=== PATIENT | female | born 1960 | race African-American/Black ===

== ENCOUNTER 2021-10-13 06:47 | Inpatient (IN) | payer OTHER ==
[~2021-10-13] VITALS: Ht 162.6 cm; Wt 113.0 kg
[~2021-10-13 06:47] MED LIST: ASPI-630 PO; HYDR-2868 PO; INSU100I13 SQ; INSU100I17 SQ; LABE100T5 PO; LOSA-73 PO; SIMV20TA18 PO; TRIA1CAP3 PO
[2021-10-13] MEDS ORDERED: ASPIRIN CHEWABLE 81 MG TABLET. PO ONE (07:15)
[2021-10-13] MEDS ORDERED: NITROGLYCERIN SUBLINGUAL 0.4 MG BOTTLE OF 25. SL PRN (07:15)
[2021-10-13] MEDS ORDERED: CONTRAST GIVEN. MC PRN (07:30)
[2021-10-13] MEDS ORDERED: IOHEXOL 350 MG/ML 100 ML VIAL. IV ONE (07:30)
--- NOTE | 2021-10-13 07:37 | PHYS DOC ---
Past Medical History Past Medical History: Diabetes-Type II, High Cholesterol, Hypertension Additional Past Medical Histor: hx pulmonary embolism Past Surgical History: Smoking Status: Never Smoker Alcohol Use: None Drug Use: None General Adult EDM: Chief Complaint: SHORTNESS OF BREATH HPI: HPI: Patient is a 61 year old female with history of DM, HTN, HLD, pulmonary embolism no longer on anticoagulation who presents with 3 days of progressive shortness of breath and intermittent chest pain. Chest pain is worse with exertion. Described as burning in nature. Central chest. Does not radiate. States she may have mild cough, but denies runny nose, sore throat, fever/chills. She is vaccinated against COVID. 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 She has bilateral lower extremity edema, but states that this is no different than usual. States that it is symmetric. Denies leg pain, but does state that she bumped her right leg into a desk recently. States that her pulmonary embolism was approximately around 2009, and describes that she had "the clots broken up, then they put me on a blood thinner." States she has not been on any blood thinners for several years. Review of Systems: Review of Systems: Constitutional: Denies fever or chills. [] Eyes: Denies change in visual acuity. [] HENT: Denies nasal congestion or sore throat. [] Respiratory: + Mild cough and shortness of breath. [] Cardiovascular: + chest pain and edema. [] GI: Denies abdominal pain, nausea, vomiting, bloody stools or diarrhea. [] Musculoskeletal: Denies back pain or joint pain. [] Integument: Denies rash. [] Psychiatric: Denies depression or anxiety. [] Heart Score: C/O Chest Pain: Yes HEART Score for Chest Pain: HEART Score for Chest Pain Response (Comments) Value History Moderately Suspicious 1 ECG Nonspecific Repolarizatio 1 Age >45 - < 65 1 Risk Factors >3 Risk Factors or Hx CAD 2 Troponin >3 x Normal Limit 2 Total 7 Risk Factors: Risk Factors: DM, HTN, HLP, obesity. Current Medications: Current Medications Medications (Trade) Dose Ordered Sig/Jimena Start Time Stop Time Status Last Admin Dose Admin Aspirin (Aspirin Chewable) 324 mg 1X ONCE 10/13/21 07:15 10/13/21 07:16 DC Nitroglycerin (Nitrostat) 0.4 mg PRN Q5MIN PRN 10/13/21 07:15 Allergies: Allergies: Allergies Coded Allergies Type Severity Reaction Last Updated Verified Penicillins Allergy Unknown Swelling 10/13/21 No losartan Adverse Reaction Severe Swelling 10/13/21 Yes Physical Exam: PE: Constitutional: Well developed, mild tachypnea, no distress HENT: Normocephalic, atraumatic Eyes: conjunctiva normal, no discharge. [] Neck: Normal range of motion, no tenderness, supple, no stridor. [] Cardiovascular:Heart rate regular rhythm, no murmur [] Lungs & Thorax: faint crackles bilaterally, mild tachypnea Abdomen: Bowel sounds normal, soft, no tenderness, no masses, no pulsatile masses. [] Skin: Warm, dry, no erythema, no rash. [] Extremities: mild bilateral pitting edema to the knee Neurologic: Alert and oriented X 3, normal motor function, normal sensory function, no focal deficits noted. [] Psychologic: Affect normal, judgement normal, mood normal. [] Current Patient Data: Vital Signs: Vital Signs Date Time Temp Pulse Resp B/P (MAP) Pulse Ox O2 Delivery O2 Flow Rate FiO2 10/13/21 06:47 97.6 94 18 228/112 (150 100 Room Air 97.6 EKG: EKG: Sinus rhythm. Rate 98. Normal axis. Slight ST depression inferiorly. t-wave inversion in I and aVL Radiology/Procedures: Radiology/Procedures: [] Impression: [facility] [address] [place] [address] IMAGING REPORT Signed PATIENT: NEIDA MCKEON ACCOUNT: [id number] : 1960 LOCATION: ER AGE: 61 SEX: F EXAM STATUS: REG ER ORD. PHYSICIAN: KIRAN FLORES MD REASON: dyspnea, cp, hx of PE now off anticoagulant PROCEDURE: CT ANGIOGRAPHY CHEST Examination: CT angiographic chest with IV contrast HISTORY: History of dyspnea, chest pain COMPARISON: None available TECHNIQUE: Axial CT angiographic images of chest were performed with IV contrast. Coronal and sagittal 3-D MIP reformats are performed. Exposure: One or more of the following individualized dose reduction techniques were utilized for this examination: 1. Automated exposure control 2. Adjustment of the mA and/or kV according to patient size 3. Use of iterative reconstruction technique FINDINGS: The visualized thyroid gland grossly appears unremarkable. Mild coronary artery calcifications. Central airways are patent. The caliber of the aorta grossly appears unremarkable. There is no evidence of filling defect identified in the main pulmonary arterial trunk and right and left main pulmonary arteries. There is questionable filling defect identified in the left lower lobe segmental branch, best visualized on series 3 image 56. Mild bibasilar lung atelectasis or infiltrates. The liver, spleen, grossly appears unremarkable Moderate degenerative disease thoracic spine. IMPRESSION: 1. No evidence of central pulmonary embolism. There is questionable filling defect identified in the left lower lobe segmental branch, could be small pulmonary embolus. 2. Mild bibasilar lung atelectasis or infiltrates. Electronically signed by: William Min MD (10/13/2021 8:29 AM) [id number] DICTATED and SIGNED BY: WILLIAM MIN MD DATE: 10/13/21 [id number] Course & Med Decision Making: Course & Med Decision Making Pertinent Labs and Imaging studies reviewed. (See chart for details) Patient is 61-year-old female with history of DM, HTN, HLD, pulmonary embolism no longer on anticoagulation who presents with 3 days of progressive shortness of breath and intermittent chest pain. On arrival is mildly tachypneic, but not in acute distress. Heart rate 90s, hypertensive 220/102, Satting well on RA. Exam concerning for some mild volume overload. Ddx includes but is not limited to: ACS, CHF, PE, pneumonia (covid vs bacterial), metabolic acidosis (eg DKA), hypertensive pulmonary edema. EKG with mild ST depressions inferiorly and high lateral t-wave inversion. Will check troponin. ASA 324 mg ordered. Given hx PE no longer on treatment will obtain CTA chest to exclude PE and obtain trop/bnp for biomarkers/risk stratification. HTN tx w/ IV labetalol. 0737 Rapid COVID negative. HS-Troponin elevated at 499. HEART Score =7. Patient is now at CT. Heparin gtt ordered. BP now 180/88. 0822 CT shows no central PE, and raises question of small left lower lobe segmental PE, which would not be sufficient to cause this troponin elevation. Cardiology paged and recommends nitro gtt. ordered. Will plan on admission to cardiac telemetry. [id number] Nataliya Disclaimer: Nataliya Disclaimer: This electronic medical record was generated, in whole or in part, using a voice recognition dictation system. Departure Departure Impression: Primary Impression: NSTEMI (non-ST elevated myocardial infarction) Additional Impressions: Hypertension Dyspnea Chest pain Disposition: ADMITTED INPATIENT Admitting Physician: NIDIA Purvis) Condition: STABLE Referrals: ROMAIN EDWARDS MD (PCP) KIRAN FLORES MD Oct 13, 2021 07:37
[2021-10-13 07:41] LABS: BASO % 1 % (0-3); EOS # 0.2 x10^3/uL (0.0-0.7); EOS % 2 % (0-3); HEMATOCRIT 37.2 % (36.0-47.0); HEMOGLOBIN 11.5 g/dL (12.0-15.5); LYMPH # 1.1 x10^3/uL (1.0-4.8); LYMPH % 16 % (24-48); MEAN CORPUSCULAR HEMOGLOBIN 21 pg (25-35); MEAN CORPUSCULAR HGB CONC 31 g/dL (31-37); MEAN CORPUSCULAR VOLUME 69 fL (79-100); MONO # 0.4 x10^3/uL (0.0-1.1); MONO % 7 % (0-9); NEUT # 5.1 x10^3/uL (1.8-7.7); NEUT % 75 % (31-73); PLATELET COUNT 262 x10^3/uL (140-400); RED BLOOD COUNT 5.43 x10^6/uL (3.50-5.40); RED CELL DISTRIBUTION WIDTH 15.5 % (11.5-14.5); WHITE BLOOD COUNT 6.8 x10^3/uL (4.0-11.0)
[2021-10-13] MEDS ORDERED: LABETALOL 20 MG/4 ML DISP.SYRIN. IVP ONE (07:45)
[2021-10-13 07:55] LABS: CALCIUM 8.7 mg/dL (8.5-10.1); CREATININE 1.1 mg/dL (0.6-1.0); GFR 60.7; POTASSIUM 3.7 mmol/L (3.5-5.1)
[2021-10-13 08:01] LABS: ALBUMIN 3.6 g/dL (3.4-5.0); ALBUMIN/GLOBULIN RATIO 0.8 (1.0-1.7); TOTAL BILIRUBIN 0.5 mg/dL (0.2-1.0); TOTAL PROTEIN 8.1 g/dL (6.4-8.2)
[2021-10-13] MEDS ORDERED: HEPARIN for IV BOLUS 10,000 UNIT/10 ML VIAL. IV ONE (08:15)
[2021-10-13 08:18] LABS: ANISOCYTOSIS PRESENT; HYPOCHROMIA PRESENT; PLT ESTIMATE ADEQUATE (ADEQUATE); POLYCHROMASIA PRESENT
--- NOTE | 2021-10-13 08:31 | RAD ---
Examination: CT angiographic chest with IV contrast HISTORY: History of dyspnea, chest pain COMPARISON: None available TECHNIQUE: Axial CT angiographic images of chest were performed with IV contrast. Coronal and sagitta l 3-D MIP reformats are performed. Exposure: One or more of the following individualized dose reduction techniques were utilized for thi s examination: 1. Automated exposure control 2. Adjustment of the mA and/or kV according to patient size 3. Use of iterative reconstruction technique FINDINGS: The visualized thyroid gland grossly appears unremarkable. Mild coronary artery calcifications. Centr al airways are patent. The caliber of the aorta grossly appears unremarkable. There is no evidence of filling defect identified in the main pulmonary arterial trunk and right and left main pulmonary art eries. There is questionable filling defect identified in the left lower lobe segmental branch, best visualized on series 3 image 56. Mild bibasilar lung atelectasis or infiltrates. The liver, spleen, g rossly appears unremarkable Moderate degenerative disease thoracic spine. IMPRESSION: 1. No evidence of central pulmonary embolism. There is questionable filling defect identified in the left lower lobe segmental branch, could be small pulmonary embolus. 2. Mild bibasilar lung atelectasis or infiltrates. Electronically signed by: William Min MD (10/13/2021 8:29 AM) [id number]
[2021-10-13] MEDS ORDERED: NITROGLYCERIN PREMIX 250 ML IV ONE (09:00)
[2021-10-13] MEDS: HEPARIN 25,000UTS/250ML PREMIX 250 ML IV PRN (09:09)
[2021-10-13 11:00] VITALS: BP 173/85
[2021-10-13] MEDS ORDERED: HYDR-2869 PO (11:17)
[2021-10-13] MEDS ORDERED: CALC300T5 PO (12:11)
--- NOTE | 2021-10-13 12:19 | HP ---
DATE OF SERVICE: 10/13/2021 ADMIT DATE: 10/13/2021 CHIEF COMPLAINT: Shortness of breath. HISTORY OF PRESENT ILLNESS: The patient is a pleasant 61-year-old female who presented to the ER with shortness of breath. She had some associated chest discomfort. We checked her cardiac enzymes. Her troponin is up to 499. She also has blood pressure of 220 systolically. I discussed the case with the ER physician. We are admitting the patient and consulting Cardiology. We are placing the patient on a nitro drip and a heparin drip. PAST MEDICAL HISTORY: Diabetes, hypertension, history of PE, . ALLERGIES: PENICILLIN, AMLODIPINE AND LOSARTAN. FAMILY HISTORY: Diabetes and coronary artery disease. 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 Does not drink, smoke or take drugs. MEDICATIONS: Reviewed, please refer to the MRAD. REVIEW OF SYSTEMS: GENERAL: No history of weight change, weakness or fevers. SKIN: No bruising, hair changes or rashes. EYES: No blurred, double or loss of vision. NOSE AND THROAT: No history of nosebleeds, hoarseness or sore throat. HEART: No history of palpitations, chest pain or shortness of breath on exertion. LUNGS: Denies cough, hemoptysis, wheezing or shortness of breath. GASTROINTESTINAL: Denies changes in appetite, nausea, vomiting, diarrhea or constipation. GENITOURINARY: No history of frequency, urgency, hesitancy or nocturia. NEUROLOGIC: Denies history of numbness, tingling, tremor or weakness. PSYCHIATRIC: No history of panic, anxiety or depression. ENDOCRINE: No history of heat or cold intolerance, polyuria or polydipsia. EXTREMITIES: Denies muscle weakness, joint pain, pain on walking or stiffness. PHYSICAL EXAMINATION: VITALS: Within normal limits and are stable. GENERAL: No apparent distress. Alert and oriented. HEENT: Normal cephalic atraumatic, external auditory canals are patent. Eyes: Extraocular muscles are intact, pupils are equally round and reactive to light and accommodation. MUSCULOSKELETAL: Well developed, well nourished, good range of motion. ENDOCRINE: No thyromegaly was palpated. LYMPHATICS: No cervical chain or axillary nodes were noted. HEMATOPOIETIC: No bruising. NECK: Supple, no JVD, no thyromegaly was noted. LUNGS: Clear to auscultation in all lung carvalho without rhonchi or wheezing. HEART: RRR, S1, S2 present. Peripheral pulses intact, no obvious murmurs were noted. ABDOMEN: Soft, nontender. Positive bowel sounds, no organomegaly, normal bowel sounds. EXTREMITIES: Without any cyanosis, clubbing, or edema. Pedal pulses intact, Homans sign is negative. NEUROLOGIC: Normal speech, normal tone. A and O x 3, moves all extremities, no obvious focal deficits. PSYCHIATRIC: Normal affect, normal mood. Stable. SKIN: No ulcerations or rashes, good skin turgor, no jaundice. VASCULAR: Good capillary refill, neurovascular bundle appears to be intact. LABORATORY DATA: Troponin is 499. BNP 700. Hemoglobin is 11.5. PTT 30. COVID testing is negative. CT angiography showed no pulmonary emboli. ASSESSMENT AND PLAN: Possible acute myocardial infarction with hypertensive urgency. The patient has been admitted on nitroglycerin drip and a heparin drip. We have consulted Cardiology. Serial enzymes, serial EKGs, echocardiogram, cardiac monitoring. Home meds. Deep venous thrombosis prophylaxis. Full code. EDY/HUDSON DR: EDY/augusto TID: [id number]
[2021-10-13] MEDS ORDERED: GLIM1TAB7 PO (12:55)
[2021-10-13] MEDS ORDERED: IV DEXTROSE 5% 250 ML BAG. IV PRN (13:00)
[2021-10-13] MEDS: INSULIN LISPRO 300 UNITS/3 ML VIAL. SQ SCH ×2 (13:00→17:00)
[2021-10-13] MEDS: ASPIRIN CHEWABLE 81 MG TABLET. PO SCH (13:00)
[2021-10-13] MEDS ORDERED: DEXTROSE 50% 25 GM / 50ML DISP.SYRIN. IV PRN (13:00)
[2021-10-13] MEDS: CALCIUM CARBONATE 500 MG TAB.CHEW PO SCH (13:15)
[2021-10-13] MEDS: GLIMEPIRIDE 2 MG TABLET. PO SCH (13:15)
[2021-10-13] MEDS: LABETALOL HCL 100 MG TABLET. PO SCH ×2 (13:15→21:04)
--- NOTE | 2021-10-13 13:43 | EKG ---
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
[2021-10-13 15:00] VITALS: BP 150/76
[2021-10-13] MEDS: HEPARIN for IV BOLUS 10,000 UNIT/10 ML VIAL. IV PRN (15:07)
--- NOTE | 2021-10-13 17:35 | PDOC2 ---
CONSULT Date of Consult Date of Consult DATE: 10/13/21 TIME: 17:28 Reason for Consult Reason for Consult: Chest pain and accelerated hypertension Referring Physician Referring Physician: Dr. Segovia Identification/Chief Complaint Chief Complaint Increasing shortness of breath Source Source: Chart review, Patient History of Present Illness Reason for Visit: The patient is a 61-year-old female who presented to the emergency room with 3 days of increasing shortness of breath and episodes of chest pressure. Her initial EKG showed a sinus rhythm with no acute ST elevation but mild nonspecific ST-T wave changes. Initial document blood pressure was 228/112. A CTA of the chest showed no central pulmonary emboli but a questionable filling defect in the left lower segmental branches that was read as possible small pleural emboli. The patient's troponin levels have been elevated at 499 and 464. This morning she is feeling significantly better after treatment. Her chest pain has resolved. She does have a history of previous pulmonary embolism. She has no documented history of coronary disease or heart failure. Past Medical History Cardiovascular: HTN, Hyperlipidemia Pulmonary: Pulmonary embolus Endocrine: Diabetes Past Surgical History Past Surgical History: Family History Family History: Hypertension Social History No ALCOHOL: none Current Problem List Problem List Problems Medical Problems: (1) Chest pain Status: Acute (2) Dyspnea Status: Acute (3) Hypertension Status: Acute (4) NSTEMI (non-ST elevated myocardial infarction) Status: Acute Current Medications Current Medications Current Medications Nitroglycerin (Nitrostat) 0.4 mg PRN Q5MIN PRN SL CHEST PAIN; Start 10/13/21 at 07:15 Aspirin (Aspirin Chewable) 324 mg 1X ONCE PO Last administered on 10/13/21at 07:49; Start 10/13/21 at 07:15; Stop 10/13/21 at 07:16; Status DC Iohexol (Omnipaque 350 Mg/ml) 100 ml 1X ONCE IV Last administered on 10/13/21at 08:15; Start 10/13/21 at 07:30; Stop 10/13/21 at 07:31; Status DC Info (CONTRAST GIVEN -- Rx MONITORING) 1 each PRN DAILY PRN MC SEE COMMENTS; Start 10/13/21 at 07:30; Stop 10/15/21 at 07:29 Labetalol HCl (Normodyne Iv Push) 20 mg 1X ONCE IVP Last administered on 10/13/21at 07:51; Start 10/13/21 at 07:45; Stop 10/13/21 at 07:46; Status DC Heparin Sodium (Porcine) (Heparin Sodium) 4,000 unit 1X ONCE IV Last administered on 10/13/21at 09:05; Start 10/13/21 at 08:15; Stop 10/13/21 at 08:34; Status DC Heparin Sodium/ Dextrose 250 ml @ 13.308 mls/ hr CONT PRN IV PER PROTOCOL Last administered on 10/13/21at 09:09; Start 10/13/21 at 08:30 Heparin Sodium (Porcine) (Heparin Sodium) 2,900 unit PRN Q6HRS PRN IV FOR UFH LEVEL LESS THAN 0.2 Last administered on 10/13/21at 15:07; Start 10/13/21 at 08:30 Nitroglycerin/ Dextrose 250 ml @ 6 mls/hr 1X ONCE IV Last administered on 10/13/21at 09:14; Start 10/13/21 at 09:00; Stop 10/15/21 at 02:39 Aspirin (Aspirin Chewable) 162 mg DAILY PO ; Start 10/13/21 at 13:00 Hydralazine HCl (Apresoline) 50 mg TID PO Last administered on 10/13/21at 13:15; Start 10/13/21 at 14:00 Labetalol HCl (Trandate) 100 mg BID PO Last administered on 10/13/21at 13:15; Start 10/13/21 at 13:00 Simvastatin (Zocor) 20 mg QHS PO ; Start 10/14/21 at 21:00 Calcium Carbonate/ Glycine (Tums) 500 mg DAILY PO Last administered on 10/13/21at 13:15; Start 10/13/21 at 13:00 Insulin Human Lispro (HumaLOG) 0-7 UNITS TIDWMEALS SQ ; Start 10/13/21 at 13:00 Dextrose (Dextrose 50%-Water Syringe) 12.5 gm PRN Q15MIN PRN IV SEE COMMENTS; Start 10/13/21 at 13:00 Dextrose (Iv Dextrose 5%) 250 ml PRN Q15MIN PRN IV SEE COMMENTS; Start 10/13/21 at 13:00; Stop 10/13/21 at 12:57; Status DC Glimepiride (Amaryl) 1 mg DAILY PO Last administered on 10/13/21at 13:15; Start 10/13/21 at 13:00 Active Scripts Active Reported Glimepiride 1 Mg Tablet 1 Tab PO DAILY Tums (Calcium Carbonate) 300 Mg Tab.chew 300 Mg PO DAILY Hydralazine Hcl 50 Mg Tablet 1 Tab PO TID Novolog Flexpen (Insulin Aspart) 100 Unit/1 Ml Insuln.pen 100 Unit SQ TIDAC PRN Simvastatin 20 Mg Tablet 20 Mg PO DAILY Aspirin 81 Mg Tab.chew 2 Tab PO DAILY Labetalol Hcl 100 Mg Tablet 1 Tab PO BID Lantus Solostar (Insulin Glargine,Hum.rec.anlog) 100 Unit/1 Ml Insuln.pen 40 Unit SQ QHS Allergies Allergies: Coded Allergies: amlodipine (Verified Allergy, Severe, Anaphylaxis, 10/13/21) Penicillins (Unverified Allergy, Unknown, Swelling, 10/13/21) losartan (Verified Adverse Reaction, Severe, Swelling, 10/13/21) ROS Respiratory: YES: Shortness of breath, SOB with excertion Cardiovascular: yes Chest Pain Physical Exam General: No acute distress HEENT: Atraumatic Lungs: Other (Slightly decreased breath sounds) Heart: Regular rate Abdomen: Normal bowel sounds Vitals VITALS Vital Signs Date Time Temp Pulse Resp B/P (MAP) Pulse Ox O2 Delivery O2 Flow Rate FiO2 10/13/21 15:00 97.1 93 20 150/76 (100) 99 97.1 10/13/21 11:15 Room Air Labs Labs Laboratory Tests Test 10/13/21 07:28 10/13/21 07:38 10/13/21 09:36 10/13/21 10:35 White Blood Count 6.8 x10^3/uL (4.0-11.0) Red Blood Count 5.43 x10^6/uL (3.50-5.40) Hemoglobin 11.5 g/dL (12.0-15.5) Hematocrit 37.2 % (36.0-47.0) Mean Corpuscular Volume 69 fL (79-100) Mean Corpuscular Hemoglobin 21 pg (25-35) Mean Corpuscular Hemoglobin Concent 31 g/dL (31-37) Red Cell Distribution Width 15.5 % (11.5-14.5) Platelet Count 262 x10^3/uL (140-400) Neutrophils (%) (Auto) 75 % (31-73) Lymphocytes (%) (Auto) 16 % (24-48) Monocytes (%) (Auto) 7 % (0-9) Eosinophils (%) (Auto) 2 % (0-3) Basophils (%) (Auto) 1 % (0-3) Neutrophils # (Auto) 5.1 x10^3/uL (1.8-7.7) Lymphocytes # (Auto) 1.1 x10^3/uL (1.0-4.8) Monocytes # (Auto) 0.4 x10^3/uL (0.0-1.1) Eosinophils # (Auto) 0.2 x10^3/uL (0.0-0.7) Basophils # (Auto) 0.0 x10^3/uL (0.0-0.2) Platelet Estimate Adequate (ADEQUATE) Large Platelets Present Polychromasia Present Hypochromasia Present Anisocytosis Present Activated Partial Thromboplast Time 30 SEC (24-38) Sodium Level 141 mmol/L (136-145) Potassium Level 3.7 mmol/L (3.5-5.1) Chloride Level 104 mmol/L (98-107) Carbon Dioxide Level 28 mmol/L (21-32) Anion Gap 9 (6-14) Blood Urea Nitrogen 19 mg/dL (7-20) Creatinine 1.1 mg/dL (0.6-1.0) Estimated GFR (Cockcroft-Gault) 60.7 BUN/Creatinine Ratio 17 (6-20) Glucose Level 164 mg/dL (70-99) Calcium Level 8.7 mg/dL (8.5-10.1) Total Bilirubin 0.5 mg/dL (0.2-1.0) Aspartate Amino Transf (AST/SGOT) 15 U/L (15-37) Alanine Aminotransferase (ALT/SGPT) 21 U/L (14-59) Alkaline Phosphatase 97 U/L (46-116) Troponin I High Sensitivity 499 ng/L (4-50) OA-Ydh-H-Type Natriuretic Peptide 700 pg/mL (0-124) Total Protein 8.1 g/dL (6.4-8.2) Albumin 3.6 g/dL (3.4-5.0) Albumin/Globulin Ratio 0.8 (1.0-1.7) SARS-CoV-2 RNA (KEVIN) Negative (Negative) SARS-CoV-2 Antigen (Rapid) Negative (NEGATIVE) Glucose (Fingerstick) 142 mg/dL (70-99) 120 mg/dL (70-99) Test 10/13/21 10:50 10/13/21 13:27 10/13/21 14:33 10/13/21 16:27 Troponin I High Sensitivity 464 ng/L (4-50) 459 ng/L (4-50) Heparin Anti-Xa Act, Unfractionated < 0.10 IU/mL (0.30-0.70) Glucose (Fingerstick) 145 mg/dL (70-99) Laboratory Tests Test 10/13/21 07:28 10/13/21 07:38 10/13/21 09:36 10/13/21 10:35 White Blood Count 6.8 x10^3/uL (4.0-11.0) Red Blood Count 5.43 x10^6/uL (3.50-5.40) Hemoglobin 11.5 g/dL (12.0-15.5) Hematocrit 37.2 % (36.0-47.0) Mean Corpuscular Volume 69 fL (79-100) Mean Corpuscular Hemoglobin 21 pg (25-35) Mean Corpuscular Hemoglobin Concent 31 g/dL (31-37) Red Cell Distribution Width 15.5 % (11.5-14.5) Platelet Count 262 x10^3/uL (140-400) Neutrophils (%) (Auto) 75 % (31-73) Lymphocytes (%) (Auto) 16 % (24-48) Monocytes (%) (Auto) 7 % (0-9) Eosinophils (%) (Auto) 2 % (0-3) Basophils (%) (Auto) 1 % (0-3) Neutrophils # (Auto) 5.1 x10^3/uL (1.8-7.7) Lymphocytes # (Auto) 1.1 x10^3/uL (1.0-4.8) Monocytes # (Auto) 0.4 x10^3/uL (0.0-1.1) Eosinophils # (Auto) 0.2 x10^3/uL (0.0-0.7) Basophils # (Auto) 0.0 x10^3/uL (0.0-0.2) Platelet Estimate Adequate (ADEQUATE) Large Platelets Present Polychromasia Present Hypochromasia Present Anisocytosis Present Activated Partial Thromboplast Time 30 SEC (24-38) Sodium Level 141 mmol/L (136-145) Potassium Level 3.7 mmol/L (3.5-5.1) Chloride Level 104 mmol/L (98-107) Carbon Dioxide Level 28 mmol/L (21-32) Anion Gap 9 (6-14) Blood Urea Nitrogen 19 mg/dL (7-20) Creatinine 1.1 mg/dL (0.6-1.0) Estimated GFR (Cockcroft-Gault) 60.7 BUN/Creatinine Ratio 17 (6-20) Glucose Level 164 mg/dL (70-99) Calcium Level 8.7 mg/dL (8.5-10.1) Total Bilirubin 0.5 mg/dL (0.2-1.0) Aspartate Amino Transf (AST/SGOT) 15 U/L (15-37) Alanine Aminotransferase (ALT/SGPT) 21 U/L (14-59) Alkaline Phosphatase 97 U/L (46-116) Troponin I High Sensitivity 499 ng/L (4-50) RQ-Hrz-K-Type Natriuretic Peptide 700 pg/mL (0-124) Total Protein 8.1 g/dL (6.4-8.2) Albumin 3.6 g/dL (3.4-5.0) Albumin/Globulin Ratio 0.8 (1.0-1.7) SARS-CoV-2 RNA (KEVIN) Negative (Negative) SARS-CoV-2 Antigen (Rapid) Negative (NEGATIVE) Glucose (Fingerstick) 142 mg/dL (70-99) 120 mg/dL (70-99) Test 10/13/21 10:50 10/13/21 13:27 10/13/21 14:33 10/13/21 16:27 Troponin I High Sensitivity 464 ng/L (4-50) 459 ng/L (4-50) Heparin Anti-Xa Act, Unfractionated < 0.10 IU/mL (0.30-0.70) Glucose (Fingerstick) 145 mg/dL (70-99) Images Images CTA of the chest as above. Assessment/Plan Assessment/Plan 1. Chest pain. Patient has no acute ST segment elevation on her EKG but her troponins are relatively mildly increased as above. CTA of the chest showed no central pulmonary embolism but there was a questionable defect in the left lower segmental branches. She does have a history of a past pulmonary embolism. She is now chest pain-free. We will complete a rule out. Will control her accelerated hypertension. She is presently on IV nitroglycerin and heparin. We will check an echocardiogram in the morning. The patient will require an ischemia work-up based on her clinical course. Consider possible pulmonary evaluation for her borderline defects on CTA in the left lower segmental branches. 2. Accelerated hypertension. Initial blood pressure of 228/112. Now significantly improved on IV nitroglycerin. 3. Hyperlipidemia. Will check morning lab. 4. Diabetes mellitus. As per the primary service. DIANE AVALOS MD Oct 13, 2021 17:35
[2021-10-13 19:37] VITALS: BP 188/99
[2021-10-13] MEDS: ACETAMINOPHEN 325 MG TABLET. PO PRN (22:45)
[2021-10-13 23:20] VITALS: BP 146/65
[2021-10-14] MEDS ORDERED: NITROGLYCERIN PREMIX 250 ML IV PRN (00:45)
[2021-10-14 03:00] VITALS: BP 139/61
[2021-10-14] MEDS: HEPARIN 25,000UTS/250ML PREMIX 250 ML IV PRN (03:54)
[2021-10-14 04:40] LABS: HEMATOCRIT 32.9 % (36.0-47.0); HEMOGLOBIN 10.2 g/dL (12.0-15.5); RED BLOOD COUNT 4.83 x10^6/uL (3.50-5.40); RED CELL DISTRIBUTION WIDTH 15.5 % (11.5-14.5); WHITE BLOOD COUNT 8.2 x10^3/uL (4.0-11.0)
[2021-10-14] MEDS: HEPARIN for IV BOLUS 10,000 UNIT/10 ML VIAL. IV PRN (05:08)
[2021-10-14] MEDS: ACETAMINOPHEN 325 MG TABLET. PO PRN ×2 (05:08→10:09)
[2021-10-14 05:13] LABS: CHOLESTEROL/HDL RATIO 2.2
[2021-10-14 07:00] VITALS: BP 188/89
--- NOTE | 2021-10-14 07:42 | PDOC ---
[employer] PROGRESS NOTE Date of Service DOS: DATE: 10/14/21 TIME: 07:37 Chief Complaint Chief Complaint Chest pain - mild NSTEMI. Likely type II demand ischemia given elevated BP 228/112. Trend troponins. Cardiology consulted Hypertensive emergency - with BP 228/112 and target end-organ damage with card iac strain, NSTEMI. Cont to monitor, IV antihypertensives HLD - statin DM2 - sliding scale insulin FEN - Cardiac ADA diet PPX - heparin gtt - heparin SC CODE - FULL DIspo - inpatient, will adjust BP meds, echo History of Present Illness History of Present Illness Ms Talavera is a 60yo female with PMHx HTN, HLD, DM2, prior pulmonary embolism who presented to the ED c/o 3 days of increasing shortness of breath and chest pressure waxing and waning. EKG sinus rhythm with no acute ST elevation but mild nonspecific ST-T wave changes. Initial document blood pressure was 228/112. A CTA of the chest showed no central pulmonary emboli but a questionable filling defect in the left lower segmental branches that was read as possible small pleural emboli.High- sensitivity troponin came down from 700-410 10/14: BP better controlled on nitro GTT. She has improvement in her shortness of breath no chest pain. Notes significant swelling with amlodipine previously. She has been on labetalol for her blood pressure as well as hydralazine but has been told she needs an additional agent. Discussed with cardiology will stop heparin gtt. transition to Imdur and await echocardiogram for further risk stratification. 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 Covid negative can have visitors now Vitals/I&O Vitals/I&O: Vital Signs Date Time Temp Pulse Resp B/P (MAP) Pulse Ox O2 Delivery O2 Flow Rate FiO2 10/14/21 03:00 98.0 83 20 139/61 (87) 99 Room Air 98.0 I & O 10/13/21 10/13/21 10/14/21 15:00 23:00 07:00 Intake Total 360 ml 200 ml 200 ml Output Total 2 ml Balance 360 ml 198 ml 200 ml Physical Exam General: No acute distress Heart: Regular rate Abdomen: Normal bowel sounds Labs Labs: Laboratory Tests Test 10/13/21 07:38 10/13/21 09:36 10/13/21 10:35 2/5/22 10:50 SARS-CoV-2 RNA (KEVIN) Negative (Negative) SARS-CoV-2 Antigen (Rapid) Negative (NEGATIVE) Glucose (Fingerstick) 142 mg/dL (70-99) 120 mg/dL (70-99) Troponin I High Sensitivity 464 ng/L (4-50) Test 10/13/21 13:27 10/13/21 14:33 10/13/21 16:27 10/13/21 20:52 Troponin I High Sensitivity 459 ng/L (4-50) Heparin Anti-Xa Act, Unfractionated < 0.10 IU/mL (0.30-0.70) Glucose (Fingerstick) 145 mg/dL (70-99) 126 mg/dL (70-99) Test 10/13/21 21:30 10/14/21 03:15 10/14/21 07:34 Heparin Anti-Xa Act, Unfractionated 0.30 IU/mL (0.30-0.70) 0.16 IU/mL (0.30-0.70) White Blood Count 8.2 x10^3/uL (4.0-11.0) Red Blood Count 4.83 x10^6/uL (3.50-5.40) Hemoglobin 10.2 g/dL (12.0-15.5) Hematocrit 32.9 % (36.0-47.0) Mean Corpuscular Volume 68 fL (79-100) Mean Corpuscular Hemoglobin 21 pg (25-35) Mean Corpuscular Hemoglobin Concent 31 g/dL (31-37) Red Cell Distribution Width 15.5 % (11.5-14.5) Platelet Count 246 x10^3/uL (140-400) Troponin I High Sensitivity 410 ng/L (4-50) Triglycerides Level 95 mg/dL (0-150) Cholesterol Level 191 mg/dL (0-200) LDL Cholesterol, Calculated 85 mg/dL (0-100) VLDL Cholesterol, Calculated 19 mg/dL (0-40) Non-HDL Cholesterol Calculated 104 mg/dL (0-129) HDL Cholesterol 87 mg/dL (40-60) Cholesterol/HDL Ratio 2.2 Glucose (Fingerstick) 157 mg/dL (70-99) Assessment and Plan Assessmemt and Plan Problems Medical Problems: (1) Chest pain Status: Acute (2) Dyspnea Status: Acute (3) Hypertension Status: Acute (4) NSTEMI (non-ST elevated myocardial infarction) Status: Acute Comment Review of Relevant I have reviewed the following items brandon (where applicable) has been applied. Medications: Current Medications Medications (Trade) Dose Ordered Sig/Jimena Route PRN Reason Start Time Stop Time Status Last Admin Dose Admin Labetalol HCl (Normodyne Iv Push) 20 mg 1X ONCE IVP 10/13/21 07:45 10/13/21 07:46 DC 10/13/21 07:51 Heparin Sodium (Porcine) (Heparin Sodium) 4,000 unit 1X ONCE IV 10/13/21 08:15 10/13/21 08:34 DC 10/13/21 09:05 Heparin Sodium/ Dextrose 250 ml @ 13.308 mls/ hr CONT PRN IV PER PROTOCOL 10/13/21 08:30 10/14/21 03:54 Heparin Sodium (Porcine) (Heparin Sodium) 2,900 unit PRN Q6HRS PRN IV FOR UFH LEVEL LESS THAN 0.2 10/13/21 08:30 10/14/21 05:08 Nitroglycerin/ Dextrose 250 ml @ 6 mls/hr 1X ONCE IV 10/13/21 09:00 10/15/21 02:39 10/13/21 09:14 Hydralazine HCl (Apresoline) 50 mg TID PO 10/13/21 14:00 10/13/21 21:04 Labetalol HCl (Trandate) 100 mg BID PO 10/13/21 13:00 10/13/21 21:04 Calcium Carbonate/ Glycine (Tums) 500 mg DAILY PO 10/13/21 13:00 10/13/21 13:15 Glimepiride (Amaryl) 1 mg DAILY PO 10/13/21 13:00 10/13/21 13:15 Acetaminophen (Tylenol) 650 mg PRN Q6HRS PRN PO MILD PAIN / TEMP > 100.3'F 10/13/21 22:45 10/14/21 05:08 Nitroglycerin/ Dextrose 250 ml @ 1.5 mls/hr CONT PRN IV SEE I/O RECORD 10/14/21 00:45 10/14/21 00:41 Justifications for Admission Other Justification BURAK HERRON MD Oct 14, 2021 07:42
[2021-10-14] MEDS: INSULIN LISPRO 300 UNITS/3 ML VIAL. SQ SCH ×3 (08:00→17:00)
[2021-10-14 08:35] LABS: ALBUMIN 3.2 g/dL (3.4-5.0); ALBUMIN/GLOBULIN RATIO 0.9 (1.0-1.7); CALCIUM 8.4 mg/dL (8.5-10.1); CREATININE 1.2 mg/dL (0.6-1.0); GFR 54.9; POTASSIUM 4.1 mmol/L (3.5-5.1); TOTAL BILIRUBIN 0.5 mg/dL (0.2-1.0); TOTAL PROTEIN 6.8 g/dL (6.4-8.2)
[2021-10-14] MEDS: CALCIUM CARBONATE 500 MG TAB.CHEW PO SCH (09:00)
[2021-10-14] MEDS: LABETALOL HCL 100 MG TABLET. PO SCH ×2 (10:09→19:49)
[2021-10-14] MEDS: ASPIRIN CHEWABLE 81 MG TABLET. PO SCH (10:09)
[2021-10-14] MEDS: GLIMEPIRIDE 2 MG TABLET. PO SCH (10:10)
[2021-10-14 11:33] VITALS: BP 145/66
[2021-10-14] MEDS ORDERED: hydrALAZINE 20 MG/ML VIAL. IVP PRN (12:15)
[2021-10-14] MEDS ORDERED: LABETALOL 20 MG/4 ML DISP.SYRIN. IVP PRN (12:15)
[2021-10-14] MEDS: ISOSORBIDE MONONITRATE ER 30 MG TAB.ER.24H PO SCH (13:35)
[2021-10-14 15:00] VITALS: BP 121/60
--- NOTE | 2021-10-14 16:02 | PDOC ---
PROGRESS NOTES Date of Service DATE: 10/14/21 TIME: 15:59 Subjective Subjective Patient seen and examined She looks and feels better today. Objective Objective Vital Signs Date Time Temp Pulse Resp B/P (MAP) Pulse Ox O2 Delivery O2 Flow Rate FiO2 10/14/21 13:35 85 132/62 10/14/21 11:33 97.0 20 98 Room Air 97.0 Intake and Output 10/14/21 07:00 Intake Total 760 ml Output Total 2 ml Balance 758 ml Intake Oral 760 ml Output Urine Total 2 ml # Voids 3 Physical Exam Abdomen: Normal bowel sounds Heart: Regular rate General: No acute distress Lungs: Clear to auscultation Assessment Assessment Problems Medical Problems: (1) Chest pain Status: Acute (2) Dyspnea Status: Acute (3) Hypertension Status: Acute (4) NSTEMI (non-ST elevated myocardial infarction) Status: Acute 1. Chest pain. Patient has no acute ST segment elevation on her EKG but her troponins are relatively mildly increased at 499, 464, 459 and 410. BNP of 700.. CTA of the chest showed no central pulmonary embolism but there was a qu estionable defect in the left lower segmental branches. She does have a history of a past pulmonary embolism. She remains chest pain-free. Her accelerated hypertension is under much better control. Converting to oral medications. Echo pending. Probable outpatient ischemia evaluation based on clinical course. 2. Accelerated hypertension. Initial blood pressure of 228/112. Morning pressure of 132/62. Will convert to oral medications. 3. Hyperlipidemia. Pending. 4. Diabetes mellitus. As per the primary service. Comment Review of Relevant I have reviewed the following items brandon (where applicable) has been applied. Labs Laboratory Tests Test 10/13/21 07:28 10/13/21 07:38 10/13/21 09:36 10/13/21 10:35 White Blood Count 6.8 x10^3/uL (4.0-11.0) Red Blood Count 5.43 x10^6/uL (3.50-5.40) Hemoglobin 11.5 g/dL (12.0-15.5) Hematocrit 37.2 % (36.0-47.0) Mean Corpuscular Volume 69 fL (79-100) Mean Corpuscular Hemoglobin 21 pg (25-35) Mean Corpuscular Hemoglobin Concent 31 g/dL (31-37) Red Cell Distribution Width 15.5 % (11.5-14.5) Platelet Count 262 x10^3/uL (140-400) Neutrophils (%) (Auto) 75 % (31-73) Lymphocytes (%) (Auto) 16 % (24-48) Monocytes (%) (Auto) 7 % (0-9) Eosinophils (%) (Auto) 2 % (0-3) Basophils (%) (Auto) 1 % (0-3) Neutrophils # (Auto) 5.1 x10^3/uL (1.8-7.7) Lymphocytes # (Auto) 1.1 x10^3/uL (1.0-4.8) Monocytes # (Auto) 0.4 x10^3/uL (0.0-1.1) Eosinophils # (Auto) 0.2 x10^3/uL (0.0-0.7) Basophils # (Auto) 0.0 x10^3/uL (0.0-0.2) Platelet Estimate Adequate (ADEQUATE) Large Platelets Present Polychromasia Present Hypochromasia Present Anisocytosis Present Activated Partial Thromboplast Time 30 SEC (24-38) Sodium Level 141 mmol/L (136-145) Potassium Level 3.7 mmol/L (3.5-5.1) Chloride Level 104 mmol/L (98-107) Carbon Dioxide Level 28 mmol/L (21-32) Anion Gap 9 (6-14) Blood Urea Nitrogen 19 mg/dL (7-20) Creatinine 1.1 mg/dL (0.6-1.0) Estimated GFR (Cockcroft-Gault) 60.7 BUN/Creatinine Ratio 17 (6-20) Glucose Level 164 mg/dL (70-99) Calcium Level 8.7 mg/dL (8.5-10.1) Total Bilirubin 0.5 mg/dL (0.2-1.0) Aspartate Amino Transf (AST/SGOT) 15 U/L (15-37) Alanine Aminotransferase (ALT/SGPT) 21 U/L (14-59) Alkaline Phosphatase 97 U/L (46-116) Troponin I High Sensitivity 499 ng/L (4-50) CG-Tej-B-Type Natriuretic Peptide 700 pg/mL (0-124) Total Protein 8.1 g/dL (6.4-8.2) Albumin 3.6 g/dL (3.4-5.0) Albumin/Globulin Ratio 0.8 (1.0-1.7) SARS-CoV-2 RNA (KEVIN) Negative (Negative) SARS-CoV-2 Antigen (Rapid) Negative (NEGATIVE) Glucose (Fingerstick) 142 mg/dL (70-99) 120 mg/dL (70-99) Test 10/13/21 10:50 10/13/21 13:27 10/13/21 14:33 10/13/21 16:27 Troponin I High Sensitivity 464 ng/L (4-50) 459 ng/L (4-50) Heparin Anti-Xa Act, Unfractionated < 0.10 IU/mL (0.30-0.70) Glucose (Fingerstick) 145 mg/dL (70-99) Test 10/13/21 20:52 10/13/21 21:30 10/14/21 03:15 10/14/21 07:34 Glucose (Fingerstick) 126 mg/dL (70-99) 157 mg/dL (70-99) Heparin Anti-Xa Act, Unfractionated 0.30 IU/mL (0.30-0.70) 0.16 IU/mL (0.30-0.70) White Blood Count 8.2 x10^3/uL (4.0-11.0) Red Blood Count 4.83 x10^6/uL (3.50-5.40) Hemoglobin 10.2 g/dL (12.0-15.5) Hematocrit 32.9 % (36.0-47.0) Mean Corpuscular Volume 68 fL (79-100) Mean Corpuscular Hemoglobin 21 pg (25-35) Mean Corpuscular Hemoglobin Concent 31 g/dL (31-37) Red Cell Distribution Width 15.5 % (11.5-14.5) Platelet Count 246 x10^3/uL (140-400) Sodium Level 141 mmol/L (136-145) Potassium Level 4.1 mmol/L (3.5-5.1) Chloride Level 104 mmol/L (98-107) Carbon Dioxide Level 26 mmol/L (21-32) Anion Gap 11 (6-14) Blood Urea Nitrogen 19 mg/dL (7-20) Creatinine 1.2 mg/dL (0.6-1.0) Estimated GFR (Cockcroft-Gault) 54.9 BUN/Creatinine Ratio 16 (6-20) Glucose Level 153 mg/dL (70-99) Calcium Level 8.4 mg/dL (8.5-10.1) Iron Level 64 ug/dL (50-170) Total Iron Binding Capacity 264 ug/dL (250-450) Iron Saturation 24 % (15-34) Total Bilirubin 0.5 mg/dL (0.2-1.0) Aspartate Amino Transf (AST/SGOT) 19 U/L (15-37) Alanine Aminotransferase (ALT/SGPT) 23 U/L (14-59) Alkaline Phosphatase 87 U/L (46-116) Troponin I High Sensitivity 410 ng/L (4-50) Total Protein 6.8 g/dL (6.4-8.2) Albumin 3.2 g/dL (3.4-5.0) Albumin/Globulin Ratio 0.9 (1.0-1.7) Triglycerides Level 95 mg/dL (0-150) Cholesterol Level 191 mg/dL (0-200) LDL Cholesterol, Calculated 85 mg/dL (0-100) VLDL Cholesterol, Calculated 19 mg/dL (0-40) Non-HDL Cholesterol Calculated 104 mg/dL (0-129) HDL Cholesterol 87 mg/dL (40-60) Cholesterol/HDL Ratio 2.2 Thyroid Stimulating Hormone (TSH) 0.810 uIU/mL (0.358-3.74) Test 10/14/21 11:10 Heparin Anti-Xa Act, Unfractionated 0.52 IU/mL (0.30-0.70) Laboratory Tests Test 10/13/21 16:27 10/13/21 20:52 10/13/21 21:30 10/14/21 03:15 Glucose (Fingerstick) 145 mg/dL (70-99) 126 mg/dL (70-99) Heparin Anti-Xa Act, Unfractionated 0.30 IU/mL (0.30-0.70) 0.16 IU/mL (0.30-0.70) White Blood Count 8.2 x10^3/uL (4.0-11.0) Red Blood Count 4.83 x10^6/uL (3.50-5.40) Hemoglobin 10.2 g/dL (12.0-15.5) Hematocrit 32.9 % (36.0-47.0) Mean Corpuscular Volume 68 fL (79-100) Mean Corpuscular Hemoglobin 21 pg (25-35) Mean Corpuscular Hemoglobin Concent 31 g/dL (31-37) Red Cell Distribution Width 15.5 % (11.5-14.5) Platelet Count 246 x10^3/uL (140-400) Sodium Level 141 mmol/L (136-145) Potassium Level 4.1 mmol/L (3.5-5.1) Chloride Level 104 mmol/L (98-107) Carbon Dioxide Level 26 mmol/L (21-32) Anion Gap 11 (6-14) Blood Urea Nitrogen 19 mg/dL (7-20) Creatinine 1.2 mg/dL (0.6-1.0) Estimated GFR (Cockcroft-Gault) 54.9 BUN/Creatinine Ratio 16 (6-20) Glucose Level 153 mg/dL (70-99) Calcium Level 8.4 mg/dL (8.5-10.1) Iron Level 64 ug/dL (50-170) Total Iron Binding Capacity 264 ug/dL (250-450) Iron Saturation 24 % (15-34) Total Bilirubin 0.5 mg/dL (0.2-1.0) Aspartate Amino Transf (AST/SGOT) 19 U/L (15-37) Alanine Aminotransferase (ALT/SGPT) 23 U/L (14-59) Alkaline Phosphatase 87 U/L (46-116) Troponin I High Sensitivity 410 ng/L (4-50) Total Protein 6.8 g/dL (6.4-8.2) Albumin 3.2 g/dL (3.4-5.0) Albumin/Globulin Ratio 0.9 (1.0-1.7) Triglycerides Level 95 mg/dL (0-150) Cholesterol Level 191 mg/dL (0-200) LDL Cholesterol, Calculated 85 mg/dL (0-100) VLDL Cholesterol, Calculated 19 mg/dL (0-40) Non-HDL Cholesterol Calculated 104 mg/dL (0-129) HDL Cholesterol 87 mg/dL (40-60) Cholesterol/HDL Ratio 2.2 Thyroid Stimulating Hormone (TSH) 0.810 uIU/mL (0.358-3.74) Test 10/14/21 07:34 10/14/21 11:10 Glucose (Fingerstick) 157 mg/dL (70-99) Heparin Anti-Xa Act, Unfractionated 0.52 IU/mL (0.30-0.70) Medications Current Medications Nitroglycerin (Nitrostat) 0.4 mg PRN Q5MIN PRN SL CHEST PAIN; Start 10/13/21 at 07:15 Aspirin (Aspirin Chewable) 324 mg 1X ONCE PO Last administered on 10/13/21at 07:49; Start 10/13/21 at 07:15; Stop 10/13/21 at 07:16; Status DC Iohexol (Omnipaque 350 Mg/ml) 100 ml 1X ONCE IV Last administered on 10/13/21at 08:15; Start 10/13/21 at 07:30; Stop 10/13/21 at 07:31; Status DC Info (CONTRAST GIVEN -- Rx MONITORING) 1 each PRN DAILY PRN MC SEE COMMENTS; Start 10/13/21 at 07:30; Stop 10/15/21 at 07:29 Labetalol HCl (Normodyne Iv Push) 20 mg 1X ONCE IVP Last administered on 10/13/21at 07:51; Start 10/13/21 at 07:45; Stop 10/13/21 at 07:46; Status DC Heparin Sodium (Porcine) (Heparin Sodium) 4,000 unit 1X ONCE IV Last administered on 10/13/21at 09:05; Start 10/13/21 at 08:15; Stop 10/13/21 at 08:34; Status DC Heparin Sodium/ Dextrose 250 ml @ 13.308 mls/ hr CONT PRN IV PER PROTOCOL Last administered on 10/14/21at 03:54; Start 10/13/21 at 08:30; Stop 10/14/21 at 13:15; Status DC Heparin Sodium (Porcine) (Heparin Sodium) 2,900 unit PRN Q6HRS PRN IV FOR UFH LEVEL LESS THAN 0.2 Last administered on 10/14/21at 05:08; Start 10/13/21 at 08:30; Stop 10/14/21 at 13:15; Status DC Nitroglycerin/ Dextrose 250 ml @ 6 mls/hr 1X ONCE IV Last administered on 10/13/21at 09:14; Start 10/13/21 at 09:00; Stop 10/15/21 at 02:39 Aspirin (Aspirin Chewable) 162 mg DAILY PO Last administered on 10/14/21at 10:09; Start 10/13/21 at 13:00 Hydralazine HCl (Apresoline) 50 mg TID PO Last administered on 10/14/21at 13:35; Start 10/13/21 at 14:00 Labetalol HCl (Trandate) 100 mg BID PO Last administered on 10/14/21at 10:09; Start 10/13/21 at 13:00 Simvastatin (Zocor) 20 mg QHS PO ; Start 10/14/21 at 21:00 Calcium Carbonate/ Glycine (Tums) 500 mg DAILY PO Last administered on 10/13/21at 13:15; Start 10/13/21 at 13:00 Insulin Human Lispro (HumaLOG) 0-7 UNITS TIDWMEALS SQ ; Start 10/13/21 at 13:00 Dextrose (Dextrose 50%-Water Syringe) 12.5 gm PRN Q15MIN PRN IV SEE COMMENTS; Start 10/13/21 at 13:00 Dextrose (Iv Dextrose 5%) 250 ml PRN Q15MIN PRN IV SEE COMMENTS; Start 10/13/21 at 13:00; Stop 10/13/21 at 12:57; Status DC Glimepiride (Amaryl) 1 mg DAILY PO Last administered on 10/14/21at 10:10; Start 10/13/21 at 13:00 Acetaminophen (Tylenol) 650 mg PRN Q6HRS PRN PO MILD PAIN / TEMP > 100.3'F Last administered on 10/14/21at 10:09; Start 10/13/21 at 22:45 Nitroglycerin/ Dextrose 250 ml @ 1.5 mls/hr CONT PRN IV SEE I/O RECORD Last administered on 10/14/21at 00:41; Start 10/14/21 at 00:45; Stop 10/14/21 at 13:15; Status DC Labetalol HCl (Normodyne Iv Push) 20 mg PRN Q2HR PRN IVP HYPERTENSION (2ND CHOICE); Start 10/14/21 at 12:15 Hydralazine HCl (Apresoline Inj) 10 mg PRN Q4HRS PRN IVP ELEVATED BP, SEE COMMENTS (1ST; Start 10/14/21 at 12:15 Isosorbide Mononitrate (Imdur) 30 mg DAILY PO Last administered on 10/14/21at 13:35; Start 10/14/21 at 13:15 Heparin Sodium (Porcine) (Heparin Sodium) 5,000 unit Q12HR SQ ; Start 10/14/21 at 21:00 Active Scripts Active Reported Glimepiride 1 Mg Tablet 1 Tab PO DAILY Tums (Calcium Carbonate) 300 Mg Tab.chew 300 Mg PO DAILY Hydralazine Hcl 50 Mg Tablet 1 Tab PO TID Novolog Flexpen (Insulin Aspart) 100 Unit/1 Ml Insuln.pen 100 Unit SQ TIDAC PRN Simvastatin 20 Mg Tablet 20 Mg PO DAILY Aspirin 81 Mg Tab.chew 2 Tab PO DAILY Labetalol Hcl 100 Mg Tablet 1 Tab PO BID Lantus Solostar (Insulin Glargine,Hum.rec.anlog) 100 Unit/1 Ml Insuln.pen 40 Unit SQ QHS Vitals/I & O Vital Sign - Last 24 Hours 10/13/21 10/13/21 10/13/21 10/13/21 19:37 19:41 21:04 21:04 Temp 98.0 98.0 Pulse 90 Resp 20 B/P (MAP) 188/99 (128) 163/75 163/75 Pulse Ox 100 O2 Delivery Room Air Room Air 10/13/21 10/14/21 10/14/21 10/14/21 23:20 03:00 07:00 08:00 Temp 98.0 98.0 97.2 98.0 98.0 97.2 Pulse 89 83 82 Resp 21 20 20 B/P (MAP) 146/65 (92) 139/61 (87) 188/89 (122) Pulse Ox 91 99 98 O2 Delivery Room Air Room Air Room Air Room Air 10/14/21 10/14/21 10/14/21 10/14/21 10:09 10:12 11:33 13:35 Temp 97.0 97.0 Pulse 82 82 62 85 Resp 20 B/P (MAP) 188/89 188/89 145/66 (92) 132/62 Pulse Ox 98 O2 Delivery Room Air 10/14/21 13:35 Pulse 85 B/P (MAP) 132/62 Intake and Output 10/13/21 10/13/21 10/14/21 15:00 23:00 07:00 Intake Total 360 ml 200 ml 200 ml Output Total 2 ml Balance 360 ml 198 ml 200 ml Justifications for Admission Other Justification DIANE AVALOS MD Oct 14, 2021 16:02
--- NOTE | 2021-10-14 17:27 | EKG ---
[facility] [address] [place] [address] Test Date: 2021-10-14 Test Time: 17:20:54 Pat Name: NEIDA MCKEON Department: Room: 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
--- NOTE | 2021-10-14 18:00 | NUR ---
Patient reported a sharp chest pain radiating to finger tips. Nitro given with minimal effect. Stat Troponin obtained, results pending, and 12-lead EKG without noted changes. BP elevated systolic in 170s. Md notified; Md adjusted patients BP meds.See chart for more.
[2021-10-14 19:08] VITALS: BP 117/55
[2021-10-14] MEDS: HEPARIN for SUB-Q USE 5,000 UNIT/ML VIAL. SQ SCH (19:51)
[2021-10-14] MEDS ORDERED: SIMVASTATIN 20 MG TABLET PO SCH (21:00)
[2021-10-14 22:13] VITALS: BP 135/69
[2021-10-15 03:02] VITALS: BP 156/79
[2021-10-15 07:00] VITALS: BP 165/78
[2021-10-15 07:02] LABS: CALCIUM 8.1 mg/dL (8.5-10.1); CREATININE 1.1 mg/dL (0.6-1.0); GFR 60.7; POTASSIUM 3.9 mmol/L (3.5-5.1)
--- NOTE | 2021-10-15 07:35 | PDOC ---
[employer] PROGRESS NOTE Date of Service DOS: DATE: 10/15/21 TIME: 07:35 Chief Complaint Chief Complaint Chest pain - mild NSTEMI. Likely type II demand ischemia given elevated BP 228/112. Trend troponins. Cardiology consulted Hypertensive emergency - with BP 228/112 and target end-organ damage with card iac strain, NSTEMI. Cont to monitor, IV antihypertensives HLD - statin DM2 - sliding scale insulin FEN - Cardiac ADA diet PPX - heparin gtt - heparin SC CODE - FULL DIspo - inpatient, will adjust BP meds, echo History of Present Illness History of Present Illness Ms Talavera is a 60yo female with PMHx HTN, HLD, DM2, prior pulmonary embolism who presented to the ED c/o 3 days of increasing shortness of breath and chest pressure waxing and waning. EKG sinus rhythm with no acute ST elevation but mild nonspecific ST-T wave changes. Initial document blood pressure was 228/112. A CTA of the chest showed no central pulmonary emboli but a questionable filling defect in the left lower segmental branches that was read as possible small pleural emboli.High- sensitivity troponin came down from 700-410 10/14: BP better controlled on nitro GTT. She has improvement in her shortness of breath no chest pain. Notes significant swelling with amlodipine previously. She has been on labetalol for her blood pressure as well as hydralazine but has been told she needs an additional agent. Discussed with cardiology will stop heparin gtt. transition to Imdur and await echocardiogram for further risk stratification. 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 BP a little better controlled today troponin trended downward. Overall she felt improved this morning and after her echocardiogram is complaining of some epigastric discomfort where the echocardiogram was done. No cough just above discomfort. No more pain or radiation into her left arm. Vitals/I&O Vitals/I&O: Vital Signs Date Time Temp Pulse Resp B/P (MAP) Pulse Ox O2 Delivery O2 Flow Rate FiO2 10/15/21 03:02 98.5 95 16 156/79 (104) 100 Room Air 98.5 l I & O 10/14/21 10/14/21 10/15/21 15:00 23:00 07:00 Intake Total 1292.75 ml 300 ml 400 ml Balance 1292.75 ml 300 ml 400 ml Physical Exam General: Alert, Cooperative, No acute distress Heart: Regular rate Abdomen: Normal bowel sounds Labs Labs: Laboratory Tests Test 10/14/21 11:10 10/14/21 16:43 10/14/21 17:50 10/14/21 18:50 Heparin Anti-Xa Act, Unfractionated 0.52 IU/mL (0.30-0.70) Glucose (Fingerstick) 68 mg/dL (70-99) 92 mg/dL (70-99) Troponin I High Sensitivity 324 ng/L (4-50) Test 10/14/21 20:29 10/15/21 05:50 10/15/21 07:13 Glucose (Fingerstick) 190 mg/dL (70-99) 107 mg/dL (70-99) Sodium Level 142 mmol/L (136-145) Potassium Level 3.9 mmol/L (3.5-5.1) Chloride Level 104 mmol/L (98-107) Carbon Dioxide Level 26 mmol/L (21-32) Anion Gap 12 (6-14) Blood Urea Nitrogen 14 mg/dL (7-20) Creatinine 1.1 mg/dL (0.6-1.0) Estimated GFR (Cockcroft-Gault) 60.7 Glucose Level 114 mg/dL (70-99) Calcium Level 8.1 mg/dL (8.5-10.1) Assessment and Plan Assessmemt and Plan Problems Medical Problems: (1) Chest pain Status: Acute (2) Dyspnea Status: Acute (3) Hypertension Status: Acute (4) NSTEMI (non-ST elevated myocardial infarction) Status: Acute Comment Review of Relevant I have reviewed the following items brandon (where applicable) has been applied. Medications: Current Medications Medications (Trade) Dose Ordered Sig/Jimena Route PRN Reason Start Time Stop Time Status Last Admin Dose Admin Simvastatin (Zocor) 20 mg QHS PO 10/14/21 21:00 10/14/21 19:49 Labetalol HCl (Normodyne Iv Push) 20 mg PRN Q2HR PRN IVP HYPERTENSION (2ND CHOICE) 10/14/21 12:15 10/14/21 17:54 Hydralazine HCl (Apresoline Inj) 10 mg PRN Q4HRS PRN IVP ELEVATED BP, SEE COMMENTS (1ST 10/14/21 12:15 10/14/21 16:36 Isosorbide Mononitrate (Imdur) 30 mg DAILY PO 10/14/21 13:15 10/14/21 13:35 Heparin Sodium (Porcine) (Heparin Sodium) 5,000 unit Q12HR SQ 10/14/21 21:00 10/14/21 19:51 Hydralazine HCl (Apresoline) 100 mg TID PO 10/14/21 21:00 10/14/21 19:50 Justifications for Admission Other Justification BURAK HERRON MD Oct 15, 2021 07:35
[2021-10-15] MEDS: INSULIN LISPRO 300 UNITS/3 ML VIAL. SQ SCH ×2 (08:00→11:52)
[2021-10-15] MEDS: LABETALOL HCL 100 MG TABLET. PO SCH (08:30)
[2021-10-15] MEDS: ASPIRIN CHEWABLE 81 MG TABLET. PO SCH (08:30)
[2021-10-15] MEDS: ISOSORBIDE MONONITRATE ER 30 MG TAB.ER.24H PO SCH (08:30)
[2021-10-15] MEDS: CALCIUM CARBONATE 500 MG TAB.CHEW PO SCH (08:31)
[2021-10-15] MEDS: HEPARIN for SUB-Q USE 5,000 UNIT/ML VIAL. SQ SCH (08:33)
--- NOTE | 2021-10-15 08:34 | RAD ---
EXAM: Nieves scale and color Doppler renal artery sonogram. HISTORY: Hypertensive emergency. TECHNIQUE: Nieves scale and color Doppler sonographic imaging of the kidneys and renal arteries with sp ectral analysis was performed. COMPARISON: None. FINDINGS: The right kidney is normal in size. The left kidney left renal artery are obscured due to b owel gas. No right hydronephrosis or suspicious right renal lesion is seen. There are normal right re nal artery peak systolic velocities and renal artery to aorta velocity ratios. IMPRESSION: 1. Unremarkable grayscale evaluation of the right kidney and no evidence of hemodynamically significa nt stenosis involving the right renal artery. 2. Obscured left kidney and left renal artery due to bowel gas. Electronically signed by: Padma Buckner MD (10/15/2021 8:32 AM) [id number]
[2021-10-15] MEDS ORDERED: PERFLUTREN PROTEIN-A MICROSPHR 0.22 MG/ML 3 ML VIAL. IV ONE ×3 (10:15→11:00)
--- NOTE | 2021-10-15 11:35 | NUR ---
SS following for discharge planning. SS reviewed pt chart and discussed with pt RN. Pt is from home and is currently on room air. COVID19 negative. Cardiology following. ECHO ordered. SS will continue to follow for discharge planning.
--- NOTE | 2021-10-15 12:41 | CARD ---
MR#: [id number] Date of Study: 10/15/2021 Ordering Physician: DIANE LINARES, Referring Physician: DIANE LINARES, Tech: Mayra Robbins [facility] APPROVED REPORT EXAM: Two-dimensional and M-mode echocardiogram with Doppler and color Doppler. Other Information Quality : Technically LimitedHR: 81bpm Rhythm : NSR INDICATION Chest Pain Echo Enhancing Agent Indication: Endocardial border delineation Agent/Amount Used: Optison 2mL RISK FACTORS Hypertension Obesity Hyperlipidemia Diabetes 2D DIMENSIONS Left Atrium(2D)3.7 (1.6-4.0cm)IVSd1.7 (0.7-1.1cm) Aortic Root(2D)3.1 (2.0-3.7cm)LVDd4.5 (3.9-5.9cm) LVOT Diameter1.9 (1.8-2.4cm)PWd1.6 (0.7-1.1cm) LVDs2.9 (2.5-4.0cm)FS (%) 34.9 % SV58.6 ml Aortic Valve AoV Peak Steven.146.3cm/sAoV VTI25.8cm AO Peak GR.8.6mmHgLVOT Peak Steven.98.3cm/s LVOT VTI 20.50cmAO Mean GR.5mmHg KAYLA (VMAX)1.15io4LSH (VTI)2.31cm2 Mitral Valve MV E Bybaiqwe44.0cm/sMV DECEL [id number] MV A Qklzyven23.7cm/sMV IFF66as E/A Ratio1.0MVA (PHT)3.08cm2 TDI E/Lateral E'13.0E/Medial E'12.3 Pulmonary Valve PV Peak Bhhqlnht387.6cm/sPV Peak Grad.7mmHg Tricuspid Valve TR P. Tjqecmqk076kz/sTR Peak Gr.33mmHg LEFT VENTRICLE The left ventricle is normal size. There is mild to moderate concentric left ventricular hypertrophy. The left ventricular systolic function is normal and the ejection fraction is within normal range. LV ejection fraction of 50-55%. There is normal LV segmental wall motion. Transmitral Doppler flow pa ttern is Grade I-abnormal relaxation pattern. RIGHT VENTRICLE The right ventricle is normal size. There is normal right ventricular wall thickness. The right ventr icular systolic function is normal. ATRIA The left atrium size is normal. The right atrium size is normal. The interatrial septum is intact wit h no evidence for an atrial septal defect or patent foramen ovale as noted on 2-D or Doppler imaging. AORTIC VALVE The aortic valve is normal in structure and function. Doppler and Color Flow revealed no significant aortic regurgitation. There is no significant aortic valvular stenosis. MITRAL VALVE The mitral valve is normal in structure and function. There is no evidence of mitral valve prolapse. There is no mitral valve stenosis. Doppler and Color-flow revealed trace to mild mitral regurgitation . TRICUSPID VALVE The tricuspid valve is normal in structure and function. Doppler and Color Flow revealed trace tricus pid regurgitation. Estimated PAP 32-35 mmHg. There is no tricuspid valve stenosis. PULMONIC VALVE The pulmonary valve is normal in structure and function. Doppler and Color Flow revealed no pulmonic valvular regurgitation. GREAT VESSELS The aortic root is normal in size. The ascending aorta is normal in size. The IVC is normal in size a nd collapses >50% with inspiration. PERICARDIAL EFFUSION There is no evidence of significant pericardial effusion. Critical Notification Critical Value: No <Conclusion> The left ventricle is normal size. The left ventricular systolic function is normal and the ejection fraction is within normal range. LV ejection fraction of 50-55%. There is normal LV segmental wall motion. There is mild to moderate concentric left ventricular hypertrophy. Doppler and Color Flow revealed no significant aortic regurgitation. There is no significant aortic valvular stenosis. Doppler and Color-flow revealed trace to mild mitral regurgitation. Doppler and Color Flow revealed trace tricuspid regurgitation. Estimated PAP 32-35 mmHg. Signed by : Diane Linares MD Electronically Approved : 10/15/2021 12:40:52
[2021-10-15 15:00] VITALS: BP 134/65
[2021-10-15] MEDS ORDERED: ISOS30TA68 PO (15:19)
[2021-10-15] MEDS ORDERED: FURO20TA3 PO (15:19)
[2021-10-15] MEDS ORDERED: NITR0.4T24 SL (15:19)
[2021-10-15] MEDS ORDERED: HYDR-2869 PO (15:19)
--- NOTE | 2021-10-15 15:25 | PDOC3 ---
Discharge Summary Visit Information Date of Admission: Oct 13, 2021 Date of Discharge: Oct 15, 2021 Admitting Diagnosis: Chest pain, NSTEMI Final Diagnosis Problems Medical Problems: (1) Chest pain Status: Acute (2) Dyspnea Status: Acute (3) Hypertension Status: Acute (4) NSTEMI (non-ST elevated myocardial infarction) Status: Acute Brief Hospital Course Allergies Allergies Coded Allergies Type Severity Reaction Last Updated Verified amlodipine Allergy Severe Anaphylaxis 10/13/21 Yes Penicillins Allergy Unknown Swelling 10/13/21 No losartan Adverse Reaction Severe Swelling 10/13/21 Yes Vital Signs Vital Signs Date Time Temp Pulse Resp B/P (MAP) Pulse Ox O2 Delivery O2 Flow Rate FiO2 10/15/21 15:00 97.7 90 16 134/65 (88) 97 Room Air 97.7 Lab Results Laboratory Tests Test 10/13/21 16:27 10/13/21 20:52 10/13/21 21:30 10/14/21 03:15 Glucose (Fingerstick) 145 mg/dL (70-99) 126 mg/dL (70-99) Heparin Anti-Xa Act, Unfractionated 0.30 IU/mL (0.30-0.70) 0.16 IU/mL (0.30-0.70) White Blood Count 8.2 x10^3/uL (4.0-11.0) Red Blood Count 4.83 x10^6/uL (3.50-5.40) Hemoglobin 10.2 g/dL (12.0-15.5) Hematocrit 32.9 % (36.0-47.0) Mean Corpuscular Volume 68 fL (79-100) Mean Corpuscular Hemoglobin 21 pg (25-35) Mean Corpuscular Hemoglobin Concent 31 g/dL (31-37) Red Cell Distribution Width 15.5 % (11.5-14.5) Platelet Count 246 x10^3/uL (140-400) Sodium Level 141 mmol/L (136-145) Potassium Level 4.1 mmol/L (3.5-5.1) Chloride Level 104 mmol/L (98-107) Carbon Dioxide Level 26 mmol/L (21-32) Anion Gap 11 (6-14) Blood Urea Nitrogen 19 mg/dL (7-20) Creatinine 1.2 mg/dL (0.6-1.0) Estimated GFR (Cockcroft-Gault) 54.9 BUN/Creatinine Ratio 16 (6-20) Glucose Level 153 mg/dL (70-99) Calcium Level 8.4 mg/dL (8.5-10.1) Iron Level 64 ug/dL (50-170) Total Iron Binding Capacity 264 ug/dL (250-450) Iron Saturation 24 % (15-34) Total Bilirubin 0.5 mg/dL (0.2-1.0) Aspartate Amino Transf (AST/SGOT) 19 U/L (15-37) Alanine Aminotransferase (ALT/SGPT) 23 U/L (14-59) Alkaline Phosphatase 87 U/L (46-116) Troponin I High Sensitivity 410 ng/L (4-50) Total Protein 6.8 g/dL (6.4-8.2) Albumin 3.2 g/dL (3.4-5.0) Albumin/Globulin Ratio 0.9 (1.0-1.7) Triglycerides Level 95 mg/dL (0-150) Cholesterol Level 191 mg/dL (0-200) LDL Cholesterol, Calculated 85 mg/dL (0-100) VLDL Cholesterol, Calculated 19 mg/dL (0-40) Non-HDL Cholesterol Calculated 104 mg/dL (0-129) HDL Cholesterol 87 mg/dL (40-60) Cholesterol/HDL Ratio 2.2 Thyroid Stimulating Hormone (TSH) 0.810 uIU/mL (0.358-3.74) Test 10/14/21 07:34 10/14/21 11:10 10/14/21 16:43 10/14/21 17:50 Glucose (Fingerstick) 157 mg/dL (70-99) 68 mg/dL (70-99) 92 mg/dL (70-99) Heparin Anti-Xa Act, Unfractionated 0.52 IU/mL (0.30-0.70) Test 10/14/21 18:50 10/14/21 20:29 10/15/21 05:50 10/15/21 07:13 Troponin I High Sensitivity 324 ng/L (4-50) Glucose (Fingerstick) 190 mg/dL (70-99) 107 mg/dL (70-99) Sodium Level 142 mmol/L (136-145) Potassium Level 3.9 mmol/L (3.5-5.1) Chloride Level 104 mmol/L (98-107) Carbon Dioxide Level 26 mmol/L (21-32) Anion Gap 12 (6-14) Blood Urea Nitrogen 14 mg/dL (7-20) Creatinine 1.1 mg/dL (0.6-1.0) Estimated GFR (Cockcroft-Gault) 60.7 Glucose Level 114 mg/dL (70-99) Calcium Level 8.1 mg/dL (8.5-10.1) Test 10/15/21 11:42 Glucose (Fingerstick) 153 mg/dL (70-99) Laboratory Tests Test 10/14/21 16:43 10/14/21 17:50 10/14/21 18:50 10/14/21 20:29 Glucose (Fingerstick) 68 mg/dL (70-99) 92 mg/dL (70-99) 190 mg/dL (70-99) Troponin I High Sensitivity 324 ng/L (4-50) Test 10/15/21 05:50 10/15/21 07:13 10/15/21 11:42 Sodium Level 142 mmol/L (136-145) Potassium Level 3.9 mmol/L (3.5-5.1) Chloride Level 104 mmol/L (98-107) Carbon Dioxide Level 26 mmol/L (21-32) Anion Gap 12 (6-14) Blood Urea Nitrogen 14 mg/dL (7-20) Creatinine 1.1 mg/dL (0.6-1.0) Estimated GFR (Cockcroft-Gault) 60.7 Glucose Level 114 mg/dL (70-99) Calcium Level 8.1 mg/dL (8.5-10.1) Glucose (Fingerstick) 107 mg/dL (70-99) 153 mg/dL (70-99) Brief Hospital Course Ms Talavera is a 60yo female with PMHx HTN, HLD, DM2, prior pulmonary embolism who presented to the ED c/o 3 days of increasing shortness of breath and chest pressure waxing and waning. EKG sinus rhythm with no acute ST elevation but mild nonspecific ST-T wave changes. Initial document blood pressure was 228/112. A CTA of the chest showed no central pulmonary emboli but a questionable filling defect in the left lower segmental branches that was read as possible small pleural emboli.High- sensitivity troponin came down from 700-410 10/14: BP better controlled on nitro GTT. She has improvement in her shortness of breath no chest pain. Notes significant swelling with amlodipine previously. She has been on labetalol for her blood pressure as well as hydralazine but has been told she needs an additional agent. Discussed with cardiology will stop heparin gtt. transition to Imdur and await echocardiogram for further risk stratification. 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 BP a little better controlled today troponin trended downward. Overall she felt improved this morning and after her echocardiogram is complaining of some epigastric discomfort where the echocardiogram was done. No cough just above discomfort. No more pain or radiation into her left arm. echocardiogram with mild diastolic dysfunction no systolic dysfunction Renal duplex with no renal artery stenosis Overall improved with addition of Imdur and increasing hydralazine. Overall recommend potential change to beta-lucy such as Coreg or metoprolol from her labetalol in the next 30 days and follow-up with cardiology for outpatient stress testing. Recommended to take an additional week off of work to get accustomed to her blood pressure medication change get a home blood pressure cuff and weigh herself daily if she gains more than 2 pounds taken as needed Lasix which is been prescribed as well Consults: Cardiology Problem list: Chest pain - mild NSTEMI. Likely type II demand ischemia given elevated BP 228/112. Trend troponins. Cardiology consulted Hypertensive emergency - with BP 228/112 and target end-organ damage with cardiac strain, NSTEMI. Cont to monitor, IV antihypertensives HLD - statin DM2 - sliding scale insulin Greater than 30 minutes spent on discharge home with self-care Discharge Information Condition at Discharge: Improved Follow Up: Weeks (1) Disposition/Orders: D/C to Home Scheduled Aspirin (Aspirin) 81 Mg Tab.chew, 2 TAB PO DAILY, #30 Ref 3 (Reported) Entered as Reported by: JOANNA VILLAVICENCIO on 05/20/14 0516 Last Action: Continued on 10/13/21 1255 by Bradford Li Calcium Carbonate (Tums) 300 Mg Tab.chew, 300 MG PO DAILY for CALCIUM, (Reported) Entered as Reported by: Bradford Li on 10/13/21 1211 Last Action: Converted on 10/13/211254 by Bradford Li Glimepiride (Glimepiride) 1 Mg Tablet, 1 TAB PO DAILY for D, #30 Ref 5 (Reported) Entered as Reported by: Bradford Li on 10/13/211254 Last Action: Converted on 10/13/211255 by Bradford Li Hydralazine Hcl (Hydralazine Hcl) 50 Mg Tablet, 2 TAB PO TID for HTN for 30 Days, #180 Ref 5 Prescribed by: BURAK HERRON MD on 10/15/211518 Insulin Glargine,Hum.rec.anlog (Lantus Solostar) 100 Unit/1 Ml Insuln.pen, 40 UNIT SQ QHS, #15 Ref 3 (Reported) Entered as Reported by: JOANNA VILLAVICENCIO on 05/20/14 0516 Isosorbide Mononitrate (Isosorbide Mononitrate Er) 30 Mg Tab.er.24h, 30 MG PO DAILY for HTN for 30 Days, #30 Ref 5 Prescribed by: BURAK HERRON MD on 10/15/211518 Labetalol Hcl (Labetalol Hcl) 100 Mg Tablet, 1 TAB PO BID, #60 Ref 5 (Reported) Entered as Reported by: JOANNA VILLAVICENCIO on 05/20/14 0516 Last Action: Continued on 10/13/211254 by Bradford Li Simvastatin (Simvastatin) 20 Mg Tablet, 20 MG PO DAILY for FOR CHOLESTEROL, #30 Ref 0 (Reported) Entered as Reported by: ASHISH GOTTLIEB on 05/20/14 0838 Last Action: Continued on 10/13/211254 by Bradford Li Scheduled PRN Furosemide (Furosemide) 20 Mg Tablet, 1 TAB PO PRN DAILY PRN for SHORTNESS OF BREATH for 30 Days, #30 Ref 5 Prescribed by: BURAK HERRON MD on 10/15/211518 Insulin Aspart (Novolog Flexpen) 100 Unit/1 Ml Insuln.pen, 100 UNIT SQ TIDAC PRN for SEE COMMENTS, #10 (Reported) Entered as Reported by: KEITH LOVELL on 05/21/14 1209 Nitroglycerin (Nitrostat) 0.4 Mg Tab.subl, 0.4 MG SL PRN Q5MIN PRN for CHEST PAIN for 30 Days, #9 Ref 5 Prescribed by: BURAK HERRON MD on 10/15/21 1519 Justicifation of Admission Dx: Justifications for Admission: Justification of Admission Dx: Yes BURAK HERRON MD Oct 15, 2021 15:25
--- NOTE | 2021-10-15 16:03 | NUR ---
TELE ET PIV DC'D. DISCHARGE MEDICATIONS ET INSTRUCTIONS REVIEWED WITH PATIENT AND SPOUSE. ALL QUESTIONS ANSWERED TO PT SATISFACTION. HARD SCRIPT FOR BP CUFF, AND RETURN TO WORK NOTE SENT WITH PT AT TIME OF DISCHARGE
--- NOTE | 2021-10-15 16:50 | PDOC ---
GRETEL LANGFORD [employer] 10/15/21 1650: CARDIO Progress Notes Date and Time Date of Service 10/15/21 Time of Evaluation 1215 Subjective Subjective: No Chest Pain, No shortness of breath, No Palpitations Vitals Vitals Vital Signs Date Time Temp Pulse Resp B/P (MAP) Pulse Ox O2 Delivery O2 Flow Rate FiO2 10/15/21 15:00 97.7 90 16 134/65 (88) 97 Room Air 97.7 Weight Weight [ ] Input and Output Intake and Output Intake and Output 10/15/21 07:00 Intake Total 1992.75 ml Balance 1992.75 ml Intake Oral 1200 ml IV Total 792.75 ml # Voids 7 Laboratory Labs Laboratory Tests Test 10/14/21 17:50 10/14/21 18:50 10/14/21 20:29 10/15/21 05:50 Glucose (Fingerstick) 92 mg/dL (70-99) 190 mg/dL (70-99) Troponin I High Sensitivity 324 ng/L (4-50) Sodium Level 142 mmol/L (136-145) Potassium Level 3.9 mmol/L (3.5-5.1) Chloride Level 104 mmol/L (98-107) Carbon Dioxide Level 26 mmol/L (21-32) Anion Gap 12 (6-14) Blood Urea Nitrogen 14 mg/dL (7-20) Creatinine 1.1 mg/dL (0.6-1.0) Estimated GFR (Cockcroft-Gault) 60.7 Glucose Level 114 mg/dL (70-99) Calcium Level 8.1 mg/dL (8.5-10.1) Test 10/15/21 07:13 10/15/21 11:42 Glucose (Fingerstick) 107 mg/dL (70-99) 153 mg/dL (70-99) Physical Exam HEENT: Neck Supple W Full Motion Chest: Symmetric LUNGS: Clear to Auscultation Heart: RRR Abdomen: Soft N/T Extremities: No Edema Neurology: alert, oriented, follow commands Assessment Assessment 1. Chest pain, mixed . Possibly related to #2. 2. Accelerated hypertension; better controlled 3. Mild troponin elevation; high sensitivity trop peak 499. Possible type II, demand ischemia in setting of above. Echo with preserved LV systolic function 3. H/o PE 4. Hyperlipidemia. Recommendations ASA therapy Will arranged outpatient ischemic evaluation and follow up in our office with Dr. Avalos Justicifation of Admission Dx: Justifications for Admission: Justification of Admission Dx: Yes DIANE AVALOS MD 10/16/21 1637: CARDIO Progress Notes Assessment Assessment Patient seen and evaluated on 10/15/2021. I agree with our nurse practitioners assessment and plan. Chest pain, mixed . Most consistent with the patient's accelerated hypertension on admission. We will continue blood pressure control. Arrange outpatient ischemia evaluation and follow-up. Accelerated hypertension; better controlled Mild troponin elevation; high sensitivity trop peak 499. Possible type II, demand ischemia in setting of above. Echo with preserved LV systolic function. Continue medical treatment. Outpatient ischemia evaluation. H/o PE Hyperlipidemia. Continue treatment. GRETEL LANGFORD APRN Oct 15, 2021 16:50 DIANE AVALOS MD Oct 16, 2021 16:37
== END 2021-10-15 16:29 | disposition home or self-care (01) | DRG 282 ==
LOC: ER 06:47 → 6 SOUTH 08:38
PROVIDERS: ADMIT Internal Medicine; ATTEND Internal Medicine
DX: I16.1 Hypertensive emergency (principal); I21.A1 Myocardial infarction type 2; R07.89 Other chest pain; E11.9 Type 2 diabetes mellitus without complications; E78.00 Pure hypercholesterolemia, unspecified; E78.5 Hyperlipidemia, unspecified; I10 Essential (primary) hypertension; Z20.822 Contact with and (suspected) exposure to COVID-19; Z82.49 Family history of ischemic heart disease and other diseases of the circulatory system; Z83.3 Family history of diabetes mellitus; Z86.711 Personal history of pulmonary embolism; Z79.899 Other long term (current) drug therapy; Z88.0 Allergy status to penicillin; Z88.8 Allergy status to other drugs, medicaments and biological substances
CPT/HCPCS: 36415; 71275; 76770; 80048; 80053; 80061; 82962; 83540; 83550; 83880; 84443; 84484; 85025; 85027; 85520; 85730; 87426; 93005; 93306; 96365; 96375; J0360; J1644; J1815; J3490; Q9956; Q9967; U0003; U0005; 99285-25; C8929; G0378